=== PATIENT | male | born 1945 | race Caucasian/White ===

== ENCOUNTER 2016-10-25 15:42 | Observation (INO) | payer MEDICARE ==
[~2016-10-25] VITALS: Ht 175.3 cm; Wt 77.3 kg
[~2016-10-25 15:42] MED LIST: BACTROBAN NASAL1 GM NASAL; BAYER CHEWABLE81 MG PO; DICLOFENAC SODI50 MG PO; ELIQUIS2.5 MG PO; EYE VITAMIN PO; GLUCOPHAGE500 MG PO; PERCOCET 10/3251 TA1 PO; ULTRAM50 MG PO
[2016-10-25 16:35] LABS: BASOPHILS 0.1 % (0.0-2.0); EOSINOPHILS 0.2 % (0-7); HEMATOCRIT 34.4 % (42.0-54.0); IMMATURE GRANULOCYTES 0.2 % (0-5); LYMPHOCYTES 3.8 % (15-50); MCH 26.8 pg (26.0-34.0); MCV 83.9 fL (80.0-100.0); MEAN PLATELET VOLUME 9.6 fL (7.4-10.4); MONOCYTES 5.9 % (2-11); NEUTROPHILS 89.8 % (40-80); PLATELET COUNT 184 10x3/uL (130-400); RDW 14.3 % (11.5-14.5); WBC 10.6 10x3/uL (4.8-10.8)
[2016-10-25 16:42] LABS: APPEARANCE CLEAR (CLEAR); BILIRUBIN NEGATIVE (NEGATIVE); COLOR YELLOW (YELLOW); GLUCOSE NEGATIVE (NEGATIVE); KETONE NEGATIVE (NEGATIVE); LEUKOCYTE ESTERASE NEGATIVE (NEGATIVE); NITRITE NEGATIVE (NEGATIVE); PROTEIN NEGATIVE (NEGATIVE); SPECIFIC GRAVITY 1.015 (1.005-1.020); UROBILINOGEN NORMAL (NORMAL)
[2016-10-25 16:50] LABS: ALBUMIN 3.8 g/dL (3.4-5.0); ALKALINE PHOSPHATASE 73 U/L (46-116); ALT (SGPT) 19 U/L (10-68); BILIRUBIN - TOTAL 0.37 mg/dL (0.2-1.3); CALC OSMOLALITY 271 mosm/kg (275-300); CALCIUM 8.4 mg/dL (8.5-10.1); CARBON DIOXIDE 29.8 mmol/L (21.0-32.0); CHLORIDE - SERUM 97 mmol/L (98-107); CREATININE - SERUM 1.3 mg/dL (0.6-1.3); GLUCOSE 155 mg/dL (74-106); MAGNESIUM - SERUM 1.5 mg/dL (1.8-2.4); POTASSIUM - SERUM 4.6 mmol/L (3.5-5.1); PROTEIN - SERUM 7.4 g/dL (6.4-8.2); SODIUM 133 mmol/L (136-145); UDS - AMPHET NEGATIVE QUAL (NEGATIVE); UDS - BARB NEGATIVE QUAL (NEGATIVE); UDS - BENZO NEGATIVE QUAL (NEGATIVE); UDS - COCAINE NEGATIVE QUAL (NEGATIVE); UDS - METH NEGATIVE QUAL (NEGATIVE); UDS - OPIATE POSITIVE QUAL (NEGATIVE); UDS - PCP NEGATIVE QUAL (NEGATIVE); UDS - THC NEGATIVE QUAL (NEGATIVE); UREA NITROGEN 21 mg/dL (7-18); eGFR NON AFRICAN AMERICAN 58 mL/min (90-120)
[2016-10-25 16:53] LABS: ALCOHOL - BLOOD (MEDICAL) < 3.0 mg/dL (0.0-10.0)
[2016-10-26 02:12] LABS: APPEARANCE - CSF CLEAR
[2016-10-26 02:13] LABS: APPEARANCE - CSF CLEAR; RBC - CSF 0 cmm (0-0)
[2016-10-26 02:13] LABS: RBC - CSF 0 cmm (0-0)
[2016-10-26 02:16] LABS: GLUCOSE - CSF 93 MG/DL (40-75); PROTEIN - CSF 73 MG/DL (12-60)
--- NOTE | 2016-10-26 03:00 | NUR ---
PT ARRIVES TO FLOOR VIA STRETCHER TO ROOM. PLACED UNDER DROPLET PRECAUTION WHILE PT BEING R/O FOR VIRAL MENINGITIS. INITIAL ASSESSMENT COMPLETED, VSS, AFEBRILE. RESP EVEN UNLABORED. PT IS CONFUSED TO PLACE AND SIUATION. FOLLOWS MOST COMMANDS. UNIT ROUTINE AND PROTOCOLS DISCUSSED WITH PT AND SPOUSE. PT'S SPOUSE VERBALIZES UNDERSTANDING. CALL LIGHT PLACED WITHIN REACH. SPOUSE ENCOURAGED TO STAY WITH PT AT BEDSIDE D/T ALTERED MENTAL STATUS. SPOUSE VERBALIZES UNDERSTANDING.
[2016-10-26 03:45] VITALS: Ht 175.3 cm; Wt 77.3 kg
[2016-10-26] MEDS ORDERED: GABAPENTIN100 MG PO (04:05)
[2016-10-26] MEDS ORDERED: PLAQUENIL200 MG PO (04:05)
[2016-10-26 04:23] VITALS: BP 113/57
--- NOTE | 2016-10-26 07:26 | NUR ---
PT SITTING UP IN BED SLEEPING. AT BEDSIDE WILL CONT TO MONITOR
[2016-10-26 08:54] LABS: MAGNESIUM - SERUM 2.2 mg/dL (1.8-2.4); PHOSPHOROUS 2.9 mg/dL (2.5-4.9); POTASSIUM - SERUM 3.9 mmol/L (3.5-5.1)
[2016-10-26 08:59] VITALS: BP 100/47
--- NOTE | 2016-10-26 10:48 | NUR ---
PT GIRLFRIEND CAME TO NURSING DESK ASKING ABOUT PAIN PILL FOR PT. IT IS ALMOST TIME BUT SHE SAID "HE IS ASLEEP, DO WE WAKE HIM UP TO GIVE HIM A PAIN PILL OR LET HIM SLEEP". I TOLD HER MALLORIE WAS PRN AND HE HAD TO ASK FOR IT IF HE IS HURTING. WE DONT WAKE UP PATIENTS TO GIVE PAIN PILLS. PT GIRLFRIEND VERBALIZES UNDERSTANDING.
[2016-10-26 12:14] VITALS: BP 117/56
[2016-10-26 16:13] VITALS: BP 122/61
[2016-10-26 16:44] LABS: % SATURATION 10 % (15-55); IRON 30 ug/dl (35-150); TOTAL IRON BIND CAPACITY 275 ug/dl (260-445); UNSAT IRON BIND CAPACITY 245 ug/dl (150-375)
--- NOTE | 2016-10-26 17:35 | NUR ---
WENT OVER DC PAPERWORK WITH PT PT VERBALIZES UNDERSTANDING. DC PIV WITH CATHETER TIP INTACT. PT WAITING ON RIDE.
--- NOTE | 2016-10-26 17:39 | NUR ---
PT WALKED OUT WITH DAUGHTER
[2016-10-28 09:17] LABS: FOLATE (FOLIC ACID) - SERUM 4.9 ng/mL (>3.0)
[2016-10-29 17:12] LABS: FUNGUS STAIN Final report (())
[2016-10-30 14:24] LABS: CRYPTO AG - CSF Negative (Negative)
[2016-11-24 08:09] LABS: FUNGUS MYCOLOGY CULTURE Final report (())
== END 2016-10-26 17:40 | disposition home or self-care (01) ==
LOC: D.ER 15:42 → D.M2 10-26 02:15 → OBSVTIME 10-26 02:15 → D.M2 10-26 17:40
PROVIDERS: Emergency Medicine; ADMIT Family Medicine
DX: R41.82 Altered mental status, unspecified (principal); R50.9 Fever, unspecified; M06.9 Rheumatoid arthritis, unspecified; D64.9 Anemia, unspecified; E11.9 Type 2 diabetes mellitus without complications; I25.10 Atherosclerotic heart disease of native coronary artery without angina pectoris; Z87.891 Personal history of nicotine dependence

== ENCOUNTER 2018-01-07 12:54 | Outpatient (CLI) | payer MEDICARE ==
[~2018-01-07] VITALS: Ht 175.3 cm; Wt 71.5 kg
--- NOTE | ~2018-01-07 | HEMODYNAMI ---
PATIENT:JONATHAN VELAZQUEZ MEDICAL RECORD: [id number] : 47 LOCATION:[facility] ADMISSION DATE: 01/07/18 Generatedon:01/07/201814:14 Patient name: JONATHAN VELAZQUEZ Patient #: [id number] SSN: : 1945 Date of study: 01/07/2018 Page: Of Hemodynamic Procedure Report Patient Data Patient Demographics Procedure consent was obtained First Name: JONATHAN Gender: Male Last Name: MARCUS : 1945 [facility] Initial: GENE Age: 72 year(s) Patient #: [id number] Race: Additional ID: [id number] Contact details Address: [address] [place] [address] [facility] State: [place] City: [place] Zip code: [address] Admission Admission Data Admission Date: 01/07/2018 Admission Time: 12:54 Admit Source: Emergency department Procedure Procedure Types Cath Procedure Diagnostic Procedure LHC LHC w/Coronaries PCI Procedure AMI/SVG/ASSEMBLER FLEXIBLE LEADS PTCA or Stent AMI-BMS/ZAIRA Initial Procedure Description Procedure Date Procedure Date: 01/07/2018 Procedure Start Time: 12:34 Procedure End Time: 13:16 Procedure Staff Name Function Agustín Contreras RT Monitor Chana Rangel RN Nurse Twan Landon RT Scrub Ildefonso Schmidt MD Performing Physician Esther Vallejo RT Monitor Procedure Data Cath Procedure Fluoroscopy Diagnostic fluoroscopy Total fluoroscopy Time: 6.9 time: 6.9 min min Diagnostic fluoroscopy Total fluoroscopy dose: dose: 332.48 mGy 332.48 mGy Contrast Material Contrast Material Type Amount (ml) Isovue 300 87 Entry Location Entry Primary Successful Side Size Upsize Upsize Entry Closure Abbott ccessful Closure Location (Fr) 1 (Fr) 2 (Fr) Remarks Device Remarks Radial Right 6 Fr Mechanical artery Short Compression Diagnostic catheters Device Type Used For End Catheter Placement DIAGNOSTIC [place] 110cm 5 Procedure Fr catheter ([id number]) Procedure Medications Medication Administration Route Dosage Oxygen NC 2 l/min Lidocaine 2% added to field 20 Heparin Flush Bag added to field 2 bags (1000units/500ml NS) 0.9% NaCl I.V. 100 ml/hr Versed I.V. 1 mg Fentanyl I.V. 25 mcg Radial Cocktail I.A. 1 syringe (Verapomil 2mg/Nitro 400mcg/Heparin 1500units) Versed I.V. 1 mg Heparin Bolus I.V. 7000 units Integrilin (Bolus I.V. 6.8 ml 2mg/ml) Versed I.V. 1 mg Fentanyl I.V. 50 mcg Solumedrol I.V. 125 mg Hemodynamics Rest Heart Rate: 84 (bpm) Pressure Samples Time Site Value (mmHg) Purpose Heart Use Rate(bpm) 12:35 AO 234/214(203) Snapshot 84 12:38 LV 7/-37,4 Snapshot 83 13:05 LV 9/5,8 Snapshot 86 Snapshots Pre Cath Intra NCS Post Cath Vital Signs Time Heart Resp SPO2 etCO2 NIBP Rhythm Pain Sedation Rate (ipm) (%) (mmHg) (mmHg) Status Level (bpm) 12:33:01 84 14 98 25.3 129/73(95) NSR w/ ST 0 (11) 10(A) Elevation , No pain 12:37:01 87 16 99 23.8 126/76(95) NSR w/ ST 0 (11) 10(A) Elevation , No pain 12:40:58 85 14 98 27.6 106/65(89) NSR w/ ST 0 (11) 9(A) Elevation , No pain 12:44:52 83 11 98 23.1 105/65(86) NSR w/ ST 0 (11) 9(A) Elevation , No pain 12:49:14 82 12 99 26.8 112/65(95) NSR w/ ST 0 (11) 9(A) Elevation , No pain 12:53:10 83 14 99 28.3 101/61(85) NSR w/ ST 0 (11) 9(A) Elevation , No pain 12:56:59 82 11 100 27.6 104/69(85) NSR w/ ST 0 (11) 9(A) Elevation , No pain 13:02:49 84 15 99 36.5 Time NSR w/ ST 0 (11) 10(A) Exceeded Elevation , No pain 13:07:42 87 15 100 16.4 119/76(99) NSR w/ ST 0 (11) 10(A) Elevation , No pain 13:11:38 84 16 98 24.6 121/67(95) NSR w/ ST 0 (11) 10(A) Elevation , No pain Medications Time Medication Route Dose Verified Delivered Reason Note s Effectiveness by by 12:32:52 Oxygen NC 2 l/min Ildefonso Buffie used for Batsheva Rangel RN procedure 12:32:58 Lidocaine 2% added 20ml Ildefonso Ildefonso for local to vial Batsheva Schmidt MD anesthetic field JIMENEZ 12:33:03 Heparin Flush added 2 bags Ildefonso Ildefonso used for Bag to Batsheva Schmidt MD procedure (1000units/500ml field JIMENEZ NS) 12:33:13 0.9% NaCl I.V. 100 Ildefonso Buffie Per physician ml/hr Batsheva Rangel RN, MD 12:33:23 Versed I.V. 1 mg Ildefonso Buffie for sedation Batsheva Rangel RN, MD 12:33:30 Fentanyl I.V. 25 mcg Ildefonso Buffie for Batsheva Rangel RN anticoagulation 12:36:42 Radial Cocktail I.A. 1 Ildefonso Ildefonso for (Verapomil syringe Batsheva Schmidt MD vasodilation 2mg/Nitro MD 400mcg/Hepari 12:38:03 Versed I.V. 1 mg Ildfeonso Buffie for sedation Batsheva Rangel RN, MD 12:41:45 Heparin Bolus I.V. 7000 Ildefonso Buffie for veri fied units Batsheva Rangel RN anticoagulation with dr MD schmidt 12:45:34 Integrilin I.V. 6.8 ml Ildefonso Buffie for wast ed (Bolus 2mg/ml) Batsheva Rangel RN antiplatelet 3.2 ml therapy of vial 13:41:41 Versed I.V. 1 mg Ildefonso Buffie used for Batsheva Rangel RN procedure 13:41:49 Fentanyl I.V. 50 mcg Ildefonso Buffie for sedation Batsheva Rangel RN, MD 13:45:24 Solumedrol I.V. 125 mg Ildefonso Buffie Per physician Batsheva Rangel RN, MD Procedure Log Time Note 12:10:44 Agustín Contreras RT(R) (CV) sent for patient. Start room use. 12:20:17 Informed consent obtained and on chart 12:20:20 Admit Source: Emergency department 12:20:43 Diagnostic Cath status Emergency 12:20:45 Time tracking: Regular hours (M-F 7:00 - 5:00) 12:20:49 Plan of Care:Hemodynamics will remain stable., Cardiac rhythm will remain stable., Comfort level will be maintained., Respiratory function will remain adequate., Patient/ family verbilizes understanding of procedure., Procedure tolerated without complication., Recovers from procedure without complications.. 12:21:04 H&P Date Dictated: 01/07/2018 ER History on chart.. 12::28 Warm blankets applied, and nettie hugger turned on for patient comfort. 12::28 Patient received from ED to CCL 3 Alert and oriented. Tansferred to table in Supine position. 12::29 ECG and BP/O2 sat monitors applied to patient. 12::29 Correct patient and procedure confirmed by team. 12::31 Pre-op teaching completed and patient verbalized understanding. 12::31 Pre-procedure instructions explained to patient. 12:22:33 Family in waiting room. 12:27:30 Is the patient allergic to Iodine/contrast media? No. 12:27:32 Was the patient premedicated? No 12:27:40 Is patient on blood thinner?Yes 12:27:43 ACC The patient was administered the following blood thiners within the last 24 hours: ACCPlavix 12:27:45 If diabetic: On Metformin? Yes 12:27:45 Patient diabetic? Yes. 12:27:48 If on Metformin: Last Dose? 01/06/2018 12:27:51 Previous problem with sedation/anesthesia? No ? 12:27:53 Snore? Yes 12:27:54 Sleep apnea? No 12:27:55 Deviated septum? No 12:27:56 Sticks out tongue? Yes 12:27:56 Opens mouth fully? Yes 12:27:59 Airway obstruction? No ? 12:28:02 Dentures? No ? 12:28:05 Pre procedure: right dorsailis pedis pulse 2+ Normal; easily identifiable; not easily obliterated 12:28:07 Pre procedure: left dorsailis pedis pulse 2+ Normal; easily identifiable; not easily obliterated 12:28:11 Patient pain scale 0/10 ?. 12:28:20 IV patent on arrival in right forearm with 0.9% NaCl at [facility]. 12:28:23 Lab results completed and on chart. 12:: Right Radial & Right Groin area was prepped with chlora-prep and draped in sterile fashion 12:: Sharps counted by scrub and verified by R.N. 12:: Alarms reviewed by R. N. 12:: --------ALL STOP TIME OUT------ 12:: Physician arrived 12::33 Final Timeout: patient, procedure, and site verified with staff and physician. All members of the team are in agreement. 12:28:35 Right Radial & Right Groin site verified by team. 12:28:37 Physical assessment completed. ASA score P 2 - A patient with mild systemic disease as per Ildefonso Schmidt MD. 12:28:41 Sedation plan: IV Moderate Sedation Medication:Versed, Fentanyl 12:28:48 Use device set Radial Dx or PCI 12:28:49 ACIST Syringe (03129) opened to sterile field. 12:28:50 Bag Decanter (2002S) opened to sterile field. 12:28:50 Medline Cath Pack ([id number]) opened to sterile field. 12:28:51 ACIST Hand Control (90559) opened to sterile field. 12:28:51 DIAGNOSTIC WIRE .035 260cm J wire (739258) opened to sterile field. 12:28:52 ACIST Manifold (07877) opened to sterile field. 12:28:53 MBrace Wrist Support ([id number]) opened to sterile field. 12:28:53 Tegaderm 4 x 4 (1626W) opened to sterile field. 12:28:55 SHEATH 6Fr Prelude Radial ([id number]) opened to sterile field. 12:32:04 Vital chart was started 12:32:52 Oxygen 2 l/min NC was administered by Chana Rangel RN; used for procedure; 12:32:58 Lidocaine 2% 20ml vial added to field was administered by Ildefonso Schmidt MD; for local anesthetic; 12:33:03 Heparin Flush Bag (1000units/500ml NS) 2 bags added to field was administered by Ildefonso Schmidt MD; used for procedure; 12:33:13 0.9% NaCl 100 ml/hr I.V. was administered by Buffie Rangel RN; Per physician; 12:33:23 Versed 1 mg I.V. was administered by Chana Rangel RN; for sedation; 12:33:30 Fentanyl 25 mcg I.V. was administered by Chana Rangel RN; for anticoagulation; 12:34:31 Full Disclosure recording started 12:34:31 Procedure started. 12:34:38 AMI 12:34:47 Local anesthetic to right radial artery with Lidocaine 2% by Ildefonso Schmidt MD.INITIAL ACCESS ONLY 12:35:56 Baseline sample Acquired. 12:36:01 Rhythm: sinus rhythm , w/ ST elevation 12:36:03 Zero performed for pressure channel P1 12:36:07 Zero performed for pressure channel P1 12:36:35 A 6 Fr Short sheath was inserted into the Right Radial artery 12:36:42 Radial Cocktail (Verapomil 2mg/Nitro 400mcg/Heparin 1500units) 1 syringe I.A. was administered by Ildefonso Schmidt MD; for vasodilation; 12:36:58 A DIAGNOSTIC [place] 110cm 5 Fr catheter (068151) was advanced over the wire and used for Procedure. 12:38:03 Versed 1 mg I.V. was administered by Chana Rangel RN; for sedation; 12:38:52 LV hemodynamics recorded. 12:38:54 LV gram done using KAMARA 12:39:09 EF : 30 % 12:39:40 RCA angiography performed. 12:40:04 LCA angiography performed. 12:41:45 Heparin Bolus 7000 units I.V. was administered by Chana Rangel RN; for anticoagulation; verified with dr schmidt 12:41:55 Catheter removed. 12:41:56 Proceeding to intervention. 12:42:14 BMW 190cm [place] 2 J wire ([id number]) opened to sterile field. 12:42:15 INFLATOR Merit BasixCompak (XR3748) opened to sterile field. 12:42:48 COPILOT Valve Control (5147650) opened to sterile field. 12:42:50 GUIDE 6FR EBU 3.5 catheter ([id number]) opened to sterile field. 12:43:10 Procedure type changed to Cath procedure, Diagnostic procedure, LHC, LHC w/Coronaries, PCI procedure, AMI/SVG/ASSEMBLER FLEXIBLE LEADS PTCA or Stent, AMI-BMS/ZAIRA Initial 12:43:20 6 Fr EBU 3.5 guide catheter was inserted over the wire 12:44:50 BMW wire advanced. 12:45:34 Integrilin (Bolus 2mg/ml) 6.8 ml I.V. was administered by Chana Rangel RN; for antiplatelet therapy; wasted 3.2 ml of vial 12:46:54 LAD 12:46:56 Wire advanced across lesion. 12:49:15 Inflate balloon Inflation number: 1 A EUPHORA 2.0 x 15 Balloon ([id number]) was prepped and advanced across the Prox LAD, then inflated to 12 LYNN for 0:10 (min:sec). 12:49:25 Inflation number: 2 The EUPHORA 2.0 x 15 Balloon ([id number]) was reinflated across the Prox LAD, to 15 LYNN for 0:10 (min:sec). 12:53:53 Balloon removed over the wire. 12:56:19 Place stent Inflation Number: 3 A RUBY RX 2.25 x 26 stent ([id number]) was prepped and advanced across the Prox LAD. The stent was deployed at 12 LYNN for 0:10 (min:sec). 12:58:19 Stent catheter was removed intact over wire. 12:59:27 Inflate balloon Inflation number: 4 A EUPHORA 3.0 x 10 balloon ([id number]) was prepped and advanced across the Prox LAD, then inflated to 18 LYNN for 0:10 (min:sec). 13:00:04 Balloon removed over the wire. 13:00:54 Wire removed. 13:00:56 Guide catheter removed. 13:01:52 TR BAND Standard ([id number]) opened to sterile field. 13:02:34 Sheath removed intact; hemostasis achieved with Mechanical Compression to the Right Radial artery. 13:02:37 Procedure ended.(Physican Out) 13:02:47 Fluoroscopy time 06.90 minutes. 13:03:02 Fluoroscopy dose: 332.48 mGy 13:03:02 Flurop Dose total: 332.48 13:03:30 Contrast amount:Isovue 300 87ml. 13:03:32 Sharps counted by scrub and verified by R.N. 13:04:07 TR band inflated with 11cc of air. 13:04:11 Insertion/operative site no bleeding no hematoma. 13:04:18 Post right radial artery:stable 13:05:37 Post-procedure physical assessment completed. ASA score P 2 - A patient with mild systemic disease as per Ildefonso Schmidt MD. 13:05:43 Post procedure rhythm: unchanged. 13:06:17 Procedure and supply charges have been captured, reviewed, submitted and are correct. 13:11:06 Vital chart was stopped 13:11:07 See physician's report for complete and final results. 13:28:59 Pt. Started to have 10 out of 10 chest pain, Dr. Schmidt has been notified. Obtaining an EKG and holding currently in Meat Manager 3 on table. 13:37:31 Right groin area was prepped with chlora-prep and draped in sterile fashion 13:37:35 Alarms reviewed by R. N. 13:37:37 Sharps counted by scrub and verified by R.N. 13:37:39 Use device set Femoral Dx 13:37:40 ACIST Syringe (36925) opened to sterile field. 13:37:41 Medline Cath Pack ([id number]) opened to sterile field. 13:37:41 Bag Decanter (2002S) opened to sterile field. 13:37:43 ACIST Manifold (76291) opened to sterile field. 13:37:43 ACIST Hand Control (44467) opened to sterile field. 13:37:44 Tegaderm 4 x 4 (1626W) opened to sterile field. 13:37:46 SHEATH Prelude 5Fr 0.035 ([id number]) opened to sterile field. 13:37:48 DIAGNOSTIC WIRE .035 260cm J wire (825289) opened to sterile field. 13:37:50 DIAGNOSTIC Multipack 5Fr catheter set (BB0561) opened to sterile field. 13:37:53 MICROPUNCTURE 4FR Cook (G35252) opened to sterile field. 13:38:13 Physician arrived 13:38:14 --------ALL STOP TIME OUT------ 13:38:15 Final Timeout: patient, procedure, and site verified with staff and physician. All members of the team are in agreement. 13:38:17 Right groin site verified by team. 13:38:22 Physical assessment completed. ASA score P 3 - A patient with severe systemic disease as per Ildefonso Schmidt MD. 13:38:25 Sedation plan: IV Moderate Sedation Medication:Versed, Fentanyl 13:41:41 Versed 1 mg I.V. was administered by Chana Rangel RN; used for procedure; 13:41:49 Fentanyl 50 mcg I.V. was administered by Chana Rangel RN; for sedation; 13:44:44 Prepping patient for re-look due to continued elevation 13:45:24 Solumedrol 125 mg I.V. was administered by Chana Rangel RN; Per physician; 13:49:31 Final Timeout: patient, procedure, and site verified with staff and physician. All members of the team are in agreement. 13:49:33 Right groin site verified by team. 13:49:36 Physical assessment completed. ASA score P 3 - A patient with severe systemic disease as per Ildefonso Schmidt MD. 13:49:39 Sedation plan: IV Moderate Sedation Medication:Versed, Fentanyl 13:49:52 Baseline sample Acquired. Intervention Summary Intervention Notes Time ActionType Lesion and Equipment Used Action# Pressure Duration Attributes 12:49:15 Inflate Prox LAD EUPHORA 2.0 x 1 12 00:10 balloon 15 Balloon ([id number]) 12:49:25 Reinflate Prox LAD EUPHORA 2.0 x 2 15 00:10 balloon 15 Balloon ([id number]) 12:56:19 Place stent Prox LAD RUBY RX 2.25 x 3 12 00:10 26 stent ([id number]) 12:59:27 Inflate Prox LAD EUPHORA 3.0 x 4 18 00:10 balloon 10 balloon ([id number]) Device Usage Item Name Manufacture Quantity Catalog Number Hospital Part Current Minimal Lot# / Charge Number Stock Stock Serial# Code ACIST Syringe Acist 2 95969 632326 029401 524483 20 (44037) Medical Systems Inc Medline Cath Cardinal 2 [id number] 129549 30343 919230 5 7 Elements Studios Health ([id number]) Bag Decanter Microtek 2 493019 87909 156596 5 () Medical Inc. DIAGNOSTIC WIRE [place] 2 562465 118163 914537 578150 30 .035 260cm J wire (755180) ACIST Hand Acist 2 57773 280351 636297 782061 5 Control (28265) Medical Systems Inc ACIST Manifold Acist 2 68998 702322 438200 114851 5 (36168) Medical Systems Inc Tegaderm 4 x 4 3M 2 1626W 809349 481107 607341 5 (1626W) MBrace Wrist Advanced 1 140-0250-00 688768 37515 172864 5 Support Vascular ([id number]) Dynamics SHEATH 6Fr Merit 1 [id number] 360687 055124 718790 5 Prelude Radial Medical ([id number]) DIAGNOSTIC Terumo 1 40-5013 161270 596955 501062 5 [place] 110cm 5 Fr catheter (577166) BMW 190cm Mercado 1 [id number] 106461 26959 369664 5 [place] 2 J Vascular wire (7290729B) INFLATOR Merit Merit 1 UD7294 734517 610800 209514 15 BasixCompaSynlogic Medical (JD8622) COPILOT Valve Mercado 1 [id number] 072793 890856 172757 5 Control Vascular (2827739) GUIDE 6FR EBU Medtronic 1 [id number] 092014 03494 031713 3 3.5 catheter (WB9SCL44) EUPHORA 2.0 x Medtronic 1 [id number] 254882 697047 096280 5 15 Balloon ([id number]) RUBY RX 2.25 x Medtronic 1 [id number] 246153 1562735 342698 5 [id number] 26 stent ([id number]) EUPHORA 3.0 x Medtronic 1 [id number] 096975 973909 894668 5 10 balloon ([id number]) TR BAND Terumo 1 [id number] 336454 931007 082934 40 Standard ([id number]) SHEATH Prelude Merit 1 YHS-7L-21-035 570427 771081 598477 5 5Fr 0.035 Medical (JKZ-2H-46-035) DIAGNOSTIC Cardinal 1 [id number] 424441 02352 853441 30 Multipack 5Fr Health catheter set (DC0624) MICROPUNCTURE MovieLaLa Medical 1 T97009 892702 747778 233818 5 4FR MovieLaLa (J87119) Signature Audit [facility] Stage Time Signature Unsigned Intra-Procedure 01/07/2018 Twan Landon RT(R) 1:17:08 PM RT(R) 01/07/2018 1:26:50 PM Intra-Procedure 01/07/2018 Esther 2:13:55 PM Counts RT(R) Signatures Monitor : Agustín Contreras RT Signature : Date : Time : Monitor : Esther Signature : Counts RT Date : Time : [address] [place] [address]
--- NOTE | ~2018-01-07 | HEMODYNAMI ---
PATIENT:JONATHAN VELAZQUEZ MEDICAL RECORD: [id number] : 47 LOCATION:DDianeCAT ADMISSION DATE: 01/07/18 Generatedon:01/07/201814:12 Patient name: JONATHAN VELAZQUEZ Patient #: [id number] SSN: : 1945 Date of study: 01/07/2018 Page: Of Hemodynamic Procedure Report Patient Data Patient Demographics First Name: JONATHAN Gender: Male Last Name: MARCUS : 1945 [facility] Initial: GENE Age: 72 year(s) Patient #: [id number] Race: Additional ID: [id number] Contact details Address: [address] [place] [address] [place] State: [place] City: [place] Zip code: [address] Admission Admission Data Admission Date: 01/07/2018 Admission Time: 12:54 Admit Source: Emergency department Procedure Procedure Types Cath Procedure Diagnostic Procedure LHC Coronaries only Aortic Root Angiography Procedure Description Procedure Date Procedure Date: 01/07/2018 Procedure Start Time: 13:54 Procedure End Time: 14:11 Procedure Staff Name Function Chana Rangel RN Nurse Twan Landon RT Scrub Ildefonso Herman MD Performing Physician Esther Vallejo RT Monitor Procedure Data Cath Procedure Fluoroscopy Diagnostic fluoroscopy Total fluoroscopy Time: 0.9 time: 0.9 min min Diagnostic fluoroscopy Total fluoroscopy dose: 118 dose: 118 mGy mGy Contrast Material Contrast Material Type Amount (ml) Isovue 300 55 Entry Location Entry Primary Successful Side Size Upsize Upsize Entry Closure Succes sful Closure Location (Fr) 1 (Fr) 2 (Fr) Remarks Device Remarks Femoral Right 5 Fr Exoseal artery Estimated blood loss: 5 ml Diagnostic catheters Device Type Used For End Catheter Placement MULTIPACK JL 4.0 5Fr Left Coronary catheter Angiography MULTIPACK 3DRC 5Fr Right Coronary catheter Angiography MULTIPACK Pigtail 5 Fr Aortic Root catheter Angiography Procedure Complications No complications Procedure Medications Medication Administration Route Dosage Integrilin Drip I.V. drip 11.7 ml/hr (75mg/100ml) unlisted medication I.V. 30 mg Hemodynamics Rest Pre Cath Intra NCS Post Cath Vital Signs Time Heart Resp SPO2 etCO2 NIBP (mmHg) Rhythm Pain Sedation Rate (ipm) (%) (mmHg) Status Level (bpm) 13:54:08 83 16 98 23.1 130/70(102) NSR 0 (11) 10(A) , No pain 13:58:07 85 17 99 19.3 123/69(96) NSR 0 (11) 10(A) , No pain 14:02:34 83 16 93 28.3 130/77(89) NSR 0 (11) 10(A) , No pain 14:06:31 87 13 97 26.8 125/77(107) NSR 0 (11) 10(A) , No pain 14:10:59 87 12 22.3 122/76(104) NSR 0 (11) 10(A) , No pain Medications Time Medication Route Dose Verified Delivered Reason Notes Effect iveness by by 14:00:35 Integrilin I.V. 11.7 Ildefonso Zayas for Drip drip ml/hr Batsheva Rangel RN antiplatelet (75mg/100ml) therapy 14:10:13 Toradol I.V. 30 mg Ildefonso Zayas Per Batsheva Rangel RN physician MD Procedure Log Time Note 13:52:40 PATIENT REMAINS ON TABLE WITH CONTINUED CHEST PAIN AND ST ELEVATION. SEE PREVIOUS REPORT. 13:52:59 Full Disclosure recording started 13:52:59 Procedure started. 13:53:19 Vital chart was started 13:53:50 Time tracking: Regular hours (M-F 7:00 - 5:00) 13:54:09 Zero performed for pressure channel P1 13:54:18 Local anesthetic to right femoral artery with Lidocaine 2% by Ildefonso Herman MD.INITIAL ACCESS ONLY 13:54:28 A 5 Fr sheath was inserted into the Right Femoral artery 13:55:06 Use device set Femoral Dx 13:55:07 Bag Decanter () opened to sterile field. 13:55:07 ACIST Syringe (05764) opened to sterile field. 13:55:08 DIAGNOSTIC WIRE .035 260cm J wire (372265) opened to sterile field. 13:55:08 Medline Cath Pack ([id number]) opened to sterile field. 13:55:11 A MULTIPACK JL 4.0 5Fr catheter was advanced over the wire and used for Left Coronary Angiography. 13:55:13 ACIST Manifold (08543) opened to sterile field. 13:55:13 ACIST Hand Control (57673) opened to sterile field. 13:55:14 DIAGNOSTIC Multipack 5Fr catheter set ([id number]) opened to sterile field. 13:55:15 Tegaderm 4 x 4 (1626W) opened to sterile field. 13:55:18 MICROPUNCTURE 4FR Cook ([id number]) opened to sterile field. 13:55:20 SHEATH Prelude 5Fr 0.035 ([id number]-0S-74-035) opened to sterile field. 13:58:17 Catheter removed. 13:58:25 A MULTIPACK 3DRC 5Fr catheter was advanced over the wire and used for Right Coronary Angiography. 13:59:31 Catheter removed. 14:00:35 Integrilin Drip (75mg/100ml) 11.7 ml/hr I.V. drip was administered by Chana Rangel RN; for antiplatelet therapy; 14:00:42 A MULTIPACK Pigtail 5 Fr catheter was advanced over the wire and used for Aortic Root Angiography. 14:01:23 Injector settings: Ml/sec: 15, Volume: 20, 14:01:33 Catheter removed. 14:01:45 Sheath removed intact; hemostasis achieved with Exoseal to the Right Femoral artery. 14:01:49 EXOSEAL 5Fr (EX500) opened to sterile field. 14:01:51 Procedure ended.(Physican Out) 14:02:28 Fluoroscopy time 00.90 minutes. 14:02:41 Fluoroscopy dose: 118 mGy 14:02:41 Flurop Dose total: 118 14:02:45 Contrast amount:Isovue 300 55ml. 14:02:46 Sharps counted by scrub and verified by R.N. 14:02:48 Insertion/operative site no bleeding no hematoma. 14:02:50 Post-op/insertion site Right Femoral artery dressed using a 4 x 4 and Tegaderm. 14:02:53 Post right femoral artery:stable, clean and dry 14:02:54 Post Procedure Pulses reassessed and unchanged 14:03:00 Post-procedure physical assessment completed. ASA score P 3 - A patient with severe systemic disease as per Ildefonso Herman MD. 14:03:02 Post procedure rhythm: unchanged. 14:03:05 Estimated blood loss: 5 ml 14:03:17 Post procedure instruction explained to patient.Patient verbalizes understanding. 14:03:18 Patient needs reinforcement of post procedure teaching. 14:03:26 Procedure type changed to Cath procedure, Diagnostic procedure, LHC, Coronaries only, Aortic Root Angiography 14:03:32 Procedure Complication : No complications 14:03:34 See physician's report for complete and final results. 14:06:19 Procedure and supply charges have been captured, reviewed, submitted and are correct. 14:10:13 Toradol 30 mg I.V. was administered by Chana Rangel RN; Per physician; 14:10:51 Vital chart was stopped 14:10:54 Report given to Pre/Post Procedure Room. 14:10:57 Patient transfered to Pre/Post Procedure Room with Stretcher. 14:11:00 Full Disclosure recording stopped 14:11:00 Procedure ended. 14:11:04 End room use (Document Last) Device Usage Item Name Manufacture Quantity Catalog Number Hospital Part Current M inimal Lot# / Charge Number Stock Stock Serial# Code ACIST Syringe Acist 1 11343 [id number] 241834 [id number] 2 0 (76945) [employer] Bag Decanter Microtek 1 2001S 004878 16809 448891 5 (2001S) Medical Inc. Medline Cath Cardinal 1 [id number] 666324 19978 607053 5 Pack Health ([id number]) DIAGNOSTIC WIRE [place] 1 278099 054696 229538 440493 3 0 .035 260cm J wire (616988) MULTIPACK JL Cardinal 1 514020 5 4.0 5Fr Health catheter ACIST Hand Acist 1 75356 080065 722762 677835 5 Control (14315) [employer] ACIST Manifold Acist 1 64758 329718 918549 004534 5 (66585) [employer] DIAGNOSTIC Cardinal 1 [id number] 335407 50593 507180 3 0 Multipack 5Fr Health catheter set ([id number]) Tegaderm 4 x 4 3M 1 1626W 557393 213849 155237 5 (1626W) MICROPUNCTURE [facility] 1 [id number] 154374 374600 244504 5 4FR [facility] ([id number]) SHEATH Prelude Merit 1 [id number]-5M-99-035 475872 616736 814971 5 5Fr 0.035 Medical (HRB-6M-49-035) MULTIPACK 3DRC Cardinal 1 959249 5 5Fr catheter Health MULTIPACK Cardinal 1 [id number] 5 Pigtail 5 Fr Health catheter EXOSEAL 5Fr Cardinal 1 EX500 061322 696320 249862 1 0 (EX500) Health Signature Audit [place] Stage Time Signature Unsigned Intra-Procedure 01/07/2018 Esther 2:12:20 PM Counts RT(R) Signatures Monitor : Esther Signature : Counts RT Date : Time : [address] [address]
--- NOTE | ~2018-01-07 | EC ---
PATIENT:JONATHAN VELAZQUEZ DATE OF SERVICE: 01/07/18 SEX: M MEDICAL RECORD: [id number] DATE OF : 47 LOCATION:D.CAT AGE OF PATIENT: 72 ADMISSION DATE: 01/07/18 REFERRING PHYSICIAN: INTERPRETING PHYSICIAN: IRVING MEJIA MD ECHOCARDIOGRAM REPORT ECHO CHARGES 4 ECHO COMPLETE Date: 01/07 CLINICAL DIAGNOSIS: POST STEMI, CATH ASSESS FOR EFFUSION ECHOCARDIOGRAPHIC MEASUREMENTS (adult normal given) AC root (d.<3.7cm) 4.8 cm LV Septum d (<1.2 cm> 2.0 cm Valve Excursion cm LV Septum (systole) 2.1 cm Left Atria (s.<4.0cm> 3.6 cm LVPW d(<1.2cm) 1.8 cm RV (d.<2.3cm) 3.1 cm LVPW (sytole) 2.2 cm LV diastole(<5.6CM) 5.4 cm MV E-F(>70mm/sec) cm LV systole 3.6 cm LVOT Diameter 1.7 cm MV exc.(>10mm) cm Est.ejection fraction (50-75%) % DOPPLER: LVIT cm/sec A 74.0 cm/sec E 77.0 cm/sec LA cm/sec RVSP 20 mmHg LVOT 103 cm/sec AOP1/2T m/s Asc. Ao 155 cm/sec RVOT cm/sec RA cm/sec PA cm/sec AV Gradient Peak 9.63 mmHg AV Mean 4.33 mmHg AV Area 1.6 cm MV Gradient Peak 4.89 mmHg MV Mean 1.96 mmHg MV Area cm COMMENTS: Supervisor Die Casting: 2 SERGEY PINEDA Call Center Support Consultant: 4 Dr. Mejia TAPE# PACS Pericardial Effusion Y DATE OF SERVICE: PROCEDURE: Transthoracic echocardiogram. FINDINGS: 1. The left ventricle shows evidence of moderate left ventricular hypertrophy. Inflow characteristics consistent with diastolic dysfunction. The patient has apical dyskinesis anterior and septal hypokinesis, lateral hypokinesis. Overall ejection fraction is 35%. 2. The right ventricle is normal size with right ventricular hypertrophy, ECHOCARDIOGRAM REPORT [id number] JONATHAN VELAZQUEZ normal function. 3. The left atrium is normal. 4. The aortic valve is normal. 5. The mitral valve is structurally normal. No significant mitral regurgitation. 6. The tricuspid valve is trace tricuspid regurgitation. RVSP is 20 mmHg. There is a mild effusion and the pericardium without tamponade physiology. 7. The IVC is shown to be normal size, but does not collapse with inspiration. CONCLUSIONS: The patient has evidence of pericardial effusion. It is possible in his clinical scenario to represent pericarditis, has regional wall motion abnormalities with the anterior apical dyskinesis, and moderate ischemic cardiomyopathy. TRANSINT:[id number] Voice Confirmation ID: [id number] DOCUMENT ID: [id number] IRVING MEJIA MD at 1029 CC: [id number] DICTATION DATE: 01/08/18 0732 YARN SPOOLER: 01/08/18 1035 DEP CLI 01/08/18 [place] [id number] [place] [address]
--- NOTE | ~2018-01-07 | OP ---
PATIENT NAME: JONATHAN VELAZQUEZ MEDICAL RECORD: [id number] :47 LOCATION:D.CAT ADMISSION DATE: SURGEON: IRVING MEJIA MD DATE OF OPERATION: 01/07/2018 PROCEDURE: Left heart catheterization, aortic root, selective coronary angiography. INDICATIONS: The patient had return of persistent severe 10/10 chest pain after we had completed the previous procedure. Therefore, the patient was brought back for selective coronary angiography and also an aortic root to rule out an aortic dissection. PROCEDURE IN DETAIL: The patient was brought to cardiac catheterization lab in stable condition. The right groin was sterilely prepped and draped. The patient had a 5-Divehi sheath placed in the right common femoral artery in a retrograde fashion using modified Seldinger technique. The patient then had selective catheterization of the left coronary artery, the right coronary artery, and the aortic root. FINDINGS: 1. Left main has mild plaquing. 2. The LAD is 100% occluded in the midsegment. 3. The mid diagonal of the D1 diagonal is shown to have a patent stent, the proximal more nondominant diagonal is shown to have an ostial pinch from the previous stenting, but they had good flow characteristics. 4. The circumflex is still widely patent with mild plaquing. 5. The RCA is a large dominant vessel with diffuse disease in the mid 60% to 70% stenosis supplying excellent collaterals into the LAD segment, which is 100% occluded. 6. The aortic root shows no evidence of dissection, no evidence of significant dilatation. IMPRESSION: Patent stent in the recently placed diagonal vessel with good flow characteristics. 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 TRANSINT:[id number] Voice Confirmation ID: [id number] DOCUMENT ID: [id number] IRVING MEJIA MD at 1029 CC: [id number] DICTATION DATE: 01/07/18 1407 HAND FORMER HELPER: 01/07/18 1508 DEP CLI 01/08/18 [place] [id number] [place] [id number]
[2018-01-07 12:15] LABS: BASOPHILS 0.2 % (0-2); EOSINOPHILS 0.3 % (0-7); HEMATOCRIT 33.4 % (42.0-54.0); HEMOGLOBIN 10.9 g/dL (13.5-17.5); IMMATURE GRANULOCYTES 0.3 % (0-5); LYMPHOCYTES 8.8 % (15-50); MCH 27.2 pg (26.0-34.0); MCHC 32.6 g/dL (31.0-37.0); MCV 83.3 fL (80.0-100.0); MEAN PLATELET VOLUME 9.4 fL (7.4-10.4); MONOCYTES 9.6 % (2-11); NEUTROPHILS 80.8 % (40-80); RBC 4.01 10x6/uL (4.20-6.10); RDW 14.3 % (11.5-14.5); WBC 11.7 10x3/uL (4.8-10.8)
[2018-01-07 12:16] LABS: PLATELET COUNT 323 10x3/uL (130-400)
[2018-01-07 12:25] LABS: APTT 35.7 SECONDS (22.8-39.4); INR 1.04 (0.85-1.17); PROTIME 13.2 SECONDS (11.6-15.0)
[2018-01-07 12:26] LABS: D-DIMER-QUANTITATIVE 0.63 ug/mLFEU (0.20-0.54)
[2018-01-07 12:49] LABS: ALBUMIN 3.3 g/dL (3.4-5.0); ALKALINE PHOSPHATASE 87 U/L (46-116); ALT (SGPT) 19 U/L (10-68); BILIRUBIN - TOTAL 0.47 mg/dL (0.2-1.3); CALC OSMOLALITY 270 mosm/kg (275-300); CALCIUM 8.5 mg/dL (8.5-10.1); CARBON DIOXIDE 25.2 mmol/L (21.0-32.0); CHLORIDE - SERUM 96 mmol/L (98-107); CREATININE - SERUM 1.2 mg/dL (0.6-1.3); GLUCOSE 170 mg/dL (74-106); POTASSIUM - SERUM 4.1 mmol/L (3.5-5.1); PROTEIN - SERUM 7.6 g/dL (6.4-8.2); SODIUM 132 mmol/L (136-145); UREA NITROGEN 19 mg/dL (7-18); eGFR NON AFRICAN AMERICAN 63 mL/min (90-120)
[~2018-01-07 12:54] MED LIST changes: +GABAPENTIN100 MG PO; +PLAQUENIL200 MG PO
[2018-01-07 12:58] LABS: CKMB 0.7 U/L (0.0-3.6); CREATINE KINASE 163 UL (21-232); MAGNESIUM - SERUM 1.7 mg/dL (1.8-2.4); PRO BNP 956 pg/mL (0-125)
[2018-01-07 13:05] LABS: TROPONIN-I < 0.017 ng/mL (0.000-0.060)
[2018-01-07 17:06] VITALS: BP 104/64
[2018-01-07 17:28] VITALS: BP 111/59; Ht 175.3 cm; Wt 71.5 kg
[2018-01-07 20:17] VITALS: BP 102/59
[2018-01-08 00:57] VITALS: BP 107/55
[2018-01-08 04:28] VITALS: BP 102/50
[2018-01-08 05:19] LABS: ANION GAP 14.2 mmol/L (8-16); CALCIUM 7.9 mg/dL (8.5-10.1); CARBON DIOXIDE 23.2 mmol/L (21.0-32.0); CREATININE - SERUM 1.1 mg/dL (0.6-1.3); MAGNESIUM - SERUM 1.9 mg/dL (1.8-2.4); POTASSIUM - SERUM 4.4 mmol/L (3.5-5.1)
[2018-01-08 05:38] LABS: BASOPHILS 0 % (0-2); EOSINOPHILS 0 % (0-7); HEMATOCRIT 28.2 % (42.0-54.0); IMMATURE GRANULOCYTES 0.3 % (0-5); MCH 26.7 pg (26.0-34.0); MCHC 31.9 g/dL (31.0-37.0); MCV 83.7 fL (80.0-100.0); MONOCYTES 6.5 % (2-11); NEUTROPHILS 89.2 % (40-80); RBC 3.37 10x6/uL (4.20-6.10); RDW 14.8 % (11.5-14.5); WBC 10.8 10x3/uL (4.8-10.8)
[2018-01-08 05:46] LABS: PLATELET COUNT 231 10x3/uL (130-400)
[2018-01-08 06:13] VITALS: BP 118/53
[2018-01-08] MEDS ORDERED: PLAVIX75 MG PO (08:00)
[2018-01-08] MEDS ORDERED: LIPITOR80 MG PO (08:01)
[2018-01-08] MEDS ORDERED: COREG 3.1253.125 MG PO (08:02)
[2018-01-08] MEDS ORDERED: IBUPROFEN800 MG PO (08:02)
[2018-01-08] MEDS ORDERED: LISINOPRIL2.5 MG PO (08:02)
[2018-01-08 09:01] VITALS: BP 113/60
== END 2018-01-08 15:37 | disposition home or self-care (01) ==
LOC: D.CATH 12:54 → D.M2 12:54 → D.CATH 01-08 15:37
PROVIDERS: Family Medicine; Internal Medicine Cardiovascular Disease
DX: R07.9 Chest pain, unspecified (principal); I25.10 Atherosclerotic heart disease of native coronary artery without angina pectoris; Z01.812 Encounter for preprocedural laboratory examination; Z95.5 Presence of coronary angioplasty implant and graft